=== PATIENT | female | born 1945 | race American Indian/Alaskan Native ===

== ENCOUNTER 2017-08-29 07:45 | Emergency (ER) | payer MEDICARE ==
[2017-08-29 08:09] VITALS: BP 133/89
[2017-08-29] MEDS ORDERED: DECADRON IM ONE (09:17)
[2017-08-29] MEDS ORDERED: BENADRYL PO ONE (09:18)
--- NOTE | 2017-08-29 09:29 | Emergency Department Report ---
HPI - General Chief Complaint: Allergic Reaction Time Seen by Provider: 08/29/17 09:24 - HPI HPI: She is a 72-year-old female presents to ED with her daughter complaining of swollen upper lip Early this morning. States she wasn't doing anything significant upper lip swell up. She denies generalized rash or a change or pain to the lips and body. She denies any injuries. Patient states she does take lisinopril and a cholesterol medication otherwise no other medication. She states she is not allergic to any medication. Patient states that she did not come into contact with any irritation or eat anything different ED Past Medical Hx - Past Medical History Previous Medical History?: Yes Hx Hypertension: Yes - Social History Smoking Status: Never Smoker - Medications Home Medications: Home Medications Medication Instructions Recorded Confirmed Last Taken Type diphenhydrAMINE [Benadryl CAP] 25 mg PO QHS PRN #20 capsule 08/29/17 Unknown Rx predniSONE [Deltasone] 20 mg PO QDAY #5 tab 08/29/17 Unknown Rx ED Review of Systems ROS: Stated complaint: LIPS SWOLLEN Other details as noted in HPI Constitutional: denies: chills, fever Eyes: denies: eye pain, eye discharge, vision change ENT: denies: ear pain, throat pain Respiratory: denies: cough, shortness of breath, wheezing Cardiovascular: denies: chest pain, palpitations Endocrine: no symptoms reported Gastrointestinal: denies: abdominal pain, nausea, diarrhea Genitourinary: denies: urgency, dysuria, discharge Musculoskeletal: denies: back pain, joint swelling, arthralgia Skin: denies: rash, lesions Neurological: denies: headache, weakness, paresthesias Psychiatric: denies: anxiety, depression Hematological/Lymphatic: denies: easy bleeding, easy bruising Physical Exam - Physical Exam Vital Signs: Vital Signs 08/29/17 08:06 Temperature 97.9 F Pulse Rate 88 Respiratory 16 Rate Blood Pressure 133/89 O2 Sat by Pulse 99 Oximetry Physical Exam: GENERAL: Alert and oriented x3, no apparent distress, Normal Gait, atraumatic. She is speaking in normal sentences with no problems NOSE: Nose symetrical, Nontender,Nares appeared normal. MOUTH:Mouth is well hydrated and without lesions. Upper lip edema, no active bleeding, no lesions. Tonsils nonerythematous or swollen, Uvula midline, Tongue not elevated. Mucous membranes are moist. Posterior pharynx clear, no exudate or lesions. Patent airways. NECK: Supple. Non edematous, No lymphadenopathy or thyromegaly. No C-spine tenderness LUNGS: Symetrical with respiration, no respiratory distress noted. No wheezing, no rales or crackles, CTAB. HEART: S1, S2 present, regular rate and rhythm without murmur, no rubs, no gallops. Non tender to palpation NEUROLOGIC: The patient is cooperative with no focal neurologic deficits. Normal speech. Normal sensation in bilateral upper and lower extremities, No loss of sensation, SKIN: Warm and dry, No lesions, No ulceration or induration present. ED Course Vital Signs 08/29/17 08:06 Temperature 97.9 F Pulse Rate 88 Respiratory 16 Rate Blood Pressure 133/89 O2 Sat by Pulse 99 Oximetry ED Medical Decision Making - Medical Decision Making 72-year-old female presents. Angioedema of the lip ED course: Patient received Decadron and Benadryl in the ED. I discussed with the patient is needs follow-up with the primary care physician for reassessment of lisinopril as she is on. I discussed the patient does sometimes taking lisinopril has a side effect of angioedema discussed with patient symptoms worsen to return to the ED immediately Patient is able to ambulate, speaking in clear sentences, she is in no respiratory distress. Patient reports that this should happen to her once a couple years ago. Patient states she will follow-up with her primary care physician. I discussed the patient is symptoms worsen or new symptoms arise to return to ED immediately. Critical care attestation.: If time is entered above; I have spent that time in minutes in the direct care of this critically ill patient, excluding procedure time. ED Disposition Clinical Impression: Angioedema of lips Qualifiers: Encounter type: initial encounter Qualified Code(s): T78.3XXA - Angioneurotic edema, initial encounter Disposition: TO HOME OR SELFCARE Is pt being admited?: No Does the pt Need Aspirin: No Condition: Stable Instructions: Lisinopril (By mouth), Angioedema (ED) Additional Instructions: Make sure to follow up with the primary care physician as discussed. Take all your medications as you've been prescribed. If you have any worsening symptoms or develop new symptoms please return to ED immediately. Prescriptions: diphenhydrAMINE [Benadryl CAP] 25 mg PO QHS PRN #20 capsule PRN Reason: Allergic Reaction predniSONE [Deltasone] 20 mg PO QDAY #5 tab Referrals: PRIMARY CARE, [Primary Care Provider] - 3-5 Days GODFREY JAQUEZ MD [Referring] - 3-5 Days [facility] [Outside] - 3-5 Days [facility] [Outside] - 3-5 Days Forms: Accompanied Note, Work/School Release Form(ED) Time of Disposition: 10:14
== END 2017-08-29 10:48 | disposition home or self-care (01) ==
LOC: ED 07:45
DX: T78.3XXA Angioneurotic edema, initial encounter (principal); I10 Essential (primary) hypertension; X58.XXXA Exposure to other specified factors, initial encounter; Y93.89 Activity, other specified; Y99.8 Other external cause status; Y92.89 Other specified places as the place of occurrence of the external cause
CPT/HCPCS: 96372; 99282; J1100